=== PATIENT | female | born 1980 ===

== ENCOUNTER → 2021-11-26 | Outpatient (CLI) | payer OTHER ==
[~2021-11-26] MED LIST: CONTRAST GIVEN. MC PRN; IOHEXOL 240 MG/ML 50ML VIAL. PO ONE; IOHEXOL 300 MG/ML 100ML VIAL. IV ONE
[2021-11-26 16:06] LABS: GFR 60.5
--- NOTE | 2021-11-26 17:05 | RAD ---
EXAMINATION: CT ABDOMEN+PELVIS W CLINICAL HISTORY: Ventral hernia. TECHNIQUE: CT of the abdomen and pelvis was performed using standard technique, scanning from just ab ove the dome of the diaphragm to the symphysis pubis following administration of intravenous contrast . CT Dose Reduction Employed: One or more of the following individualized dose reduction techniques wer e utilized for this examination: 1. Automated exposure control 2. Adjustment of the mA and/or kV ac cording to patient size 3. Use of iterative reconstruction technique. COMPARISON: None FINDINGS: Visualized heart and lungs unremarkable. Cholecystectomy. Liver, pancreas, spleen, adrenal glands, and kidneys unremarkable. Moderately filled urinary bladder. Mild contour deformity along the posterior uterine body, suspiciou s for a poorly visualized fibroid. Ovaries unremarkable on limited evaluation. No bowel dilation or definite wall thickening. Appendix within normal limits. No abdominal aortic or iliac artery aneurysm. Diastases recti and small fat-containing periumbilical hernia with hernia neck measuring up to 3.8 x 2.9 cm (TRV x CC). Partially visualized degenerative changes in the thoracic spine. IMPRESSION: Diastases recti with small fat-containing periumbilical hernia. Additional nonacute findings as described. Electronically signed by: Pete Belle DO (11/26/2021 5:03 PM) [id number]
== END ==
LOC: CT 15:37
PROVIDERS: ATTEND Surgery
DX: M62.08 Separation of muscle (nontraumatic), other site (principal); K42.9 Umbilical hernia without obstruction or gangrene; M47.814 Spondylosis without myelopathy or radiculopathy, thoracic region
CPT/HCPCS: 36415; 74177; 82565; 84520; Q9966; Q9967